=== PATIENT | male | born 1975 | race Caucasian/White ===

== ENCOUNTER 2018-03-17 01:11 | Emergency (ER) | payer BC, OTHER ==
[~2018-03-17] VITALS: Ht 172.7 cm; Wt 128.9 kg
[2018-03-17 01:27] VITALS: BP 132/87
--- NOTE | 2018-03-17 01:38 | ER.PDOC ---
General Chief Complaint: Cough/Congestion Stated Complaint: CONGESTION Time seen by MD: 01:20 Source: patient Exam Limitations: no limitations History of Present Illness Initial Comments Pt with cold like symptoms for 1 week, yesterday started with fever, cough, body aches, headaches. Timing/Duration: gradual Severity: moderate Associated Symptoms: fever/chills, cough, headache Allergies: Coded Allergies: No Known Allergies (Unverified , 09/22/16) Constitutional: fever EENTM: no symptoms reported Respiratory: see HPI Cardiovascular: no symptoms reported Gastrointestinal: no symptoms reported Genitourinary: no symptoms reported Musculoskeletal: no symptoms reported Skin: no symptoms reported Psychiatric/Neurological: headache Endocrine: no symptoms reported Hematologic/Lymphatic: no symptoms reported Past Medical History Medical History: no pertinent history Surgical History: tonsillectomy Social History Smoking: chew Alcohol Use: rarely Drug Use: none Physical Exam General Appearance: alert, no distress Eye: eyes nml inspection, lids & conjunct. nml, PERRL, no nystagmus Ear: ear nml Nose: nose nml Throat: pharynx nml, airway nml Neck: nml inspection, supple Respiratory: no resp.distress, rhonchi (bilaterally) Abdomen: non-tender, no organomegaly CVS: reg rate & rhythm, heart sounds nml Skin: color nml, no rash, warm/dry Extremities: non-tender, nml ROM, no pedal edema NEURO/PSYCH: oriented x 3, CN's nml as tested, motor nml, sensation nml, mood/ affect nml Results/Orders Results/Orders Laboratory Tests Test 03/17/18 01:46 03/17/18 01:50 White Blood Count 11.6 10^3/uL (4.5-11.0) Red Blood Count 4.86 10^6/uL (4.50-5.90) Hemoglobin 14.1 g/dL (13.9-16.3) Hematocrit 39.3 % (37.0-53.0) Mean Corpuscular Volume 80.9 fL (78-100) Mean Corpuscular Hemoglobin 29.0 pg (26-34) Mean Corpuscular Hemoglobin Concent 35.9 g/dL (33-37) Red Cell Distribution Width 13.6 % (11.5-14.5) Platelet Count 222 10^3/uL (150-400) Mean Platelet Volume 10.0 fL (7.8-11.0) Neutrophils (%) (Auto) 84.9 % (41.0-85.0) Lymphocytes (%) (Auto) 5.4 % (24.0-44.0) Monocytes (%) (Auto) 8.7 % (5.0-12.0) Neutrophils # (Auto) 9.8 10^3/uL (1.8-7.7) Lymphocytes # (Auto) 0.6 10^3/uL (1.0-4.8) Monocytes # (Auto) 1.0 10^3/uL (0.3-0.8) Absolute Immature Granulocyte (auto 0.05 10^3 u/L (0-2) Eosinophils % 0.3 % (0.0-5.0) Basophils % 0.3 % (0.0-0.2) Basophils # 0.0 10^3/uL (0.0-0.1) Eosinophil Count 0.0 10^3/uL (0.0-0.2) Sodium Level 138 mmol/L (132-145) Potassium Level 2.6 mmol/L (3.6-5.2) Chloride Level 101.0 mmol/L (96-109) Carbon Dioxide Level 26.1 mmol/L (20.0-32) Anion Gap 13.5 Blood Urea Nitrogen 9 mg/dL (7-18) Creatinine 1.22 mg/dL (0.59-1.40) Estimated GFR () 78.1 (>/=60) BUN/Creatinine Ratio 7.0 Glucose Level 156 mg/dL (70-110) Calcium Level 8.6 mg/dL (8.4-10.5) Total Bilirubin 0.7 mg/dL (0.2-1.0) Aspartate Amino Transf (AST/SGOT) 20 U/L (0-35) Alanine Aminotransferase (ALT/SGPT) 33 U/L (12-78) Alkaline Phosphatase 45 U/L (50-136) Total Protein 7.4 g/dL (6.4-8.2) Albumin 3.3 g/dL (3.4-5.0) Globulin 4.1 Percent Immature Gran (Cell Imm) 0.40 % (0.00-0.50) Influenza Type A Antigen NEGATIVE (NEG) Influenza B Immunofluorescence NEGATIVE (NEG) Departure Time of Disposition: 02:18 Disposition: 01 HOME, SELF-CARE Impression: Primary Impression: Acute bronchitis Additional Impression: Migraine Condition: Stable Patient Instructions: Bronchitis, Nyef-ja-Fyvl, Migraine Headache Referrals: [facility]AN[facility] (PCP) PRIMARY CARE PROVIDER Duration or Time Spent with Pa: 15 Problem Qualifiers SANDI VIGIL MD Mar 17, 2018 01:38
[2018-03-17 01:51] LABS: BASOPHIL % 0.3 % (0.0-0.2); EOSINOPHIL % 0.3 % (0.0-5.0); HEMOGLOBIN 14.1 g/dL (13.9-16.3); LYMPHOCYTES # 0.6 10^3/uL (1.0-4.8); LYMPHOCYTES % 5.4 % (24.0-44.0); MEAN CELL HGB CONCENTRATION 35.9 g/dL (33-37); MEAN CORP VOLUME 80.9 fL (78-100); MONOCYTES % 8.7 % (5.0-12.0); NEUTROPHIL # 9.8 10^3/uL (1.8-7.7); NEUTROPHILS % 84.9 % (41.0-85.0); RED CELL DISTRIBUTION WIDTH 13.6 % (11.5-14.5); WHITE BLOOD CELL 11.6 10^3/uL (4.5-11.0)
--- NOTE | 2018-03-17 01:54 | DIREP ---
PROCEDURE:CHEST 1 VIEW COMPARISON:[facility], CR, CHEST 2 VIEW, 01/08/2014, 05:[address] [facility], CR, XRAY CHEST SINGLE VW, 09/22/2016, 09:57 PM. INDICATIONS:Fever, cough FINDINGS: LUNGS/PLEURA:No significant pulmonary parenchymal abnormalities. No effusions. VASCULATURE:Normal. Unremarkable pulmonary vasculature. CARDIAC:Normal. No cardiac silhouette abnormality or cardiomegaly. MEDIASTINUM:Normal. No visible mass or adenopathy. BONES:Normal. No fracture or visible bony lesion. OTHER:Negative. CONCLUSION:Normal examination. There is no significant change as compared with the previous examination. Dictated by: Diogo Valdivia MD on 03/17/2018 at 01:51 AM
[2018-03-17 02:07] LABS: CALCIUM 8.6 mg/dL (8.4-10.5); CARBON DIOXIDE 26.1 mmol/L (20.0-32)
[2018-03-17] MEDS ORDERED: ROCEPHIN IM IM STA (02:21)
[2018-03-17] MEDS ORDERED: TORADOL ONE (02:22)
[2018-03-17] MEDS ORDERED: ROCEPHIN ONE (02:22)
[2018-03-17] MEDS ORDERED: LIDOCAINE 1% VIAL ONE (02:22)
[2018-03-17 02:24] LABS: BAND NEUTROPHILS 17 % (2-6); BASOPHIL 1 % (0-2); EOSINOPHIL 1 % (1-4); LYMPHOCYTE 4 % (25-36); MONOCYTE 7 % (3-9); SEGMENTED NEUTROPHILS 70 % (31-76)
[2018-03-17 02:30] VITALS: BP 160/76
[2018-03-17] MEDS ORDERED: TORADOL IM ONE (02:30)
[2018-03-17 03:18] VITALS: BP 132/87
== END 2018-03-17 03:20 | disposition home or self-care (01) ==
LOC: ER 01:11
DX: J20.9 Acute bronchitis, unspecified (principal); G43.909 Migraine, unspecified, not intractable, without status migrainosus; F17.220 Nicotine dependence, chewing tobacco, uncomplicated; Z90.89 Acquired absence of other organs
CPT/HCPCS: 36415; 71045; 80053; 85025; 86710 ×2; 96372 ×2; 99285; J0696; J1885; J2001

== ENCOUNTER → 2018-05-29 | Outpatient (CLI) | payer BC ==
--- NOTE | 2018-05-29 20:39 | DIREP ---
PROCEDURE:XRAY SPINE THORACIC 3 VWS COMPARISON:None. INDICATIONS:Thoracic PAIN TECHNIQUE:AP & lateral views of the thoracic spine and a swimmer's view of the cervicothoracic junction are provided. FINDINGS: ALIGNMENT:Normal. VERTEBRAE:No visible fracture. DISK SPACES:Normal. OTHER:Normal. CONCLUSION:No visible fracture. Dictated by: Nando Felder M.D. on 05/29/2018 at 08:37 PM
--- NOTE | 2018-05-29 20:40 | DIREP ---
PROCEDURE:XR SPINE CERVICAL 2 OR 3 VIEWS COMPARISON:None. INDICATIONS:CERVICAL PIAN TECHNIQUE:AP, lateral, and dens views of the cervical spine are provided. FINDINGS: ALIGNMENT:Straightening of the spine, may be positional or secondary to muscle spasm. VERTEBRAE:No visible fracture. Bones appear intact however T1 is not visible on the lateral and cannot be cleared. DISK SPACES:Within normal limits. However, C7-T1 not seen on the lateral and cannot be cleared. CERVICAL RIBS:None. OTHER:Normal. CONCLUSION:Straightening of the spine without acute findings. However C7-T1 not well seen on the lateral and cannot be cleared. Dictated by: Nando Felder M.D. on 05/29/2018 at 08:38 PM
== END | disposition home or self-care (01) ==
LOC: RAD 17:21
PROVIDERS: ATTEND Nurse Practitioner Family
DX: M54.6 Pain in thoracic spine (principal); M54.2 Cervicalgia; M54.10 Radiculopathy, site unspecified; G62.89 Other specified polyneuropathies
CPT/HCPCS: 72040; 72072

== ENCOUNTER → 2018-07-26 | Outpatient (CLI) | payer BC ==
--- NOTE | 2018-07-26 11:29 | DIREP ---
PROCEDURE:CT CHEST W&W/O COMPARISON:None. INDICATIONS:LUNG OPACITY, ABNORMAL MRI OF T-SPINE TECHNIQUE:Helical sections through the chest were performed from the lung apices through the diaphragms with and without IV contrast. Sagittal and coronal reconstructions are obtained from source images. FINDINGS: LUNGS:Linear densities in the right lung base in keeping with subsegmental atelectasis or scarring. PLEURA:Normal. No mass or effusion. CARDIAC:Normal. No enlargement, pericardial thickening, or significant calcification. MEDIASTINUM:Normal. No mass or adenopathy. SOM:Normal. No mass or adenopathy. AORTA:Normal. No aneurysm. CHEST WALL:Normal. No mass or axillary adenopathy. LIMITED ABDOMEN: Low-density liver indicates fatty infiltration. Simple appearing left renal cyst(s). BONES:Normal. No bony lesion or fracture. OTHER:Negative. CONCLUSION: 1. Subsegmental atelectasis or scarring at the right lung base 2. Low-density liver indicates fatty infiltration. Dictated by: Diogo Bishop Jr. on 07/26/2018 at 11:25 AM
== END | disposition home or self-care (01) ==
LOC: RAD 10:34
PROVIDERS: ATTEND Pediatrics
DX: N28.1 Cyst of kidney, acquired (principal); K76.0 Fatty (change of) liver, not elsewhere classified; R06.02 Shortness of breath
CPT/HCPCS: 71270; Q9965

== ENCOUNTER → 2018-09-06 | Outpatient (CLI) | payer BC ==
--- NOTE | 2018-09-06 19:25 | DIREP ---
PROCEDURE:CT CERVICAL SPINE WITHOUT CONTRAST TECHNIQUE:Axial cuts were obtained through the cervical spine. The images were viewed at bone and soft tissue settings. Sagittal and coronal reconstructions are provided. COMPARISON:None. INDICATIONS:M54.12 CERVICAL RADICULOPATHY FINDINGS: ALIGNMENT:There is reversal the cervical lordosis that may be positional or related to spasm. VERTEBRAE:Normal. PARASPINAL AREA:Normal. OTHER:No additional findings. CERVICAL DISC LEVELS Mild C5-6 and pxju-yt-atbhcurs C6-7 disc space narrowing. Dorsal disc and osteophyte bulges are present at C4-5, C5-6, and C6-7 resulting in gnfn-xk-drnabyal spinal canal stenosis at these levels. CONCLUSION: 1. Dorsal disc and osteophyte bulges from C4-5 through C6-7 resulting in eieh-tm-lihjkhzh spinal canal stenosis. 2. No fractures or subluxations. 3. Mild C5-6 and uqas-jl-eohwfxjd C6-7 degenerative disc disease. Dictated by: Reinaldo Tapia MD on 09/06/2018 at 07:20 PM
== END | disposition home or self-care (01) ==
LOC: RAD 15:30
PROVIDERS: ATTEND Neurological Surgery
DX: M50.323 Other cervical disc degeneration at C6-C7 level (principal); M25.78 Osteophyte, vertebrae; M48.02 Spinal stenosis, cervical region
CPT/HCPCS: 72125

== ENCOUNTER → 2020-01-10 | Outpatient (CLI) | payer BC ==
--- NOTE | 2020-01-10 16:13 | DIREP ---
PROCEDURE:US SOFT TISSUE ABDOMINAL WALL COMPARISON:CT, CT CHEST W&W/O, 07/26/2018, 10:56 AM. INDICATIONS:HERNIA TECHNIQUE:Sonography of the soft tissues of the supraumbilical region was performed using grayscale and color Doppler imaging. Detail somewhat limited by large body habitus. FINDINGS: MASSES:None. FLUID COLLECTIONS:None. OTHER:Negative. CONCLUSION:No sonographic evidence of hernia, limited detail secondary to body habitus. Concern for hernia persists consider CT the abdomen and pelvis. Dictated by: GENA Physician on 01/10/2020 at 03:21 PM ac
== END | disposition home or self-care (01) ==
LOC: RAD 14:25
PROVIDERS: ATTEND Nurse Practitioner Family
DX: K46.9 Unspecified abdominal hernia without obstruction or gangrene (principal)
CPT/HCPCS: 76705

== ENCOUNTER → 2020-04-03 | Outpatient (CLI) | payer BC | END | disposition home or self-care (01) | LOC: LAB 11:35 | PROVIDERS: ATTEND Nurse Practitioner Family | DX: E03.9 Hypothyroidism, unspecified (principal) | CPT/HCPCS: 36415; 84443 ==

== ENCOUNTER → 2020-06-18 | Outpatient (CLI) | payer BC ==
[2020-06-18 10:36] LABS: MEAN CORP HGB 28.8 pg (26-34); RED CELL DISTRIBUTION WIDTH 12.8 % (11.5-14.5)
[2020-06-18 11:22] LABS: CALCIUM 8.8 mg/dL (8.4-10.5)
== END | disposition home or self-care (01) ==
LOC: LAB 10:14
PROVIDERS: ATTEND Nurse Practitioner Family
DX: I10 Essential (primary) hypertension (principal); R53.83 Other fatigue; E78.5 Hyperlipidemia, unspecified; E03.9 Hypothyroidism, unspecified; R53.81 Other malaise; R73.9 Hyperglycemia, unspecified
CPT/HCPCS: 36415; 80053; 80061; 83036; 84402; 84403; 84439; 84443; 84480; 85027

== ENCOUNTER → 2020-10-26 | Outpatient (CLI) | payer BC ==
--- NOTE | 2020-10-26 18:13 | DIREP ---
PROCEDURE:US SOFT TISSUE ABDOMINAL WALL COMPARISON:None. INDICATIONS:VENTRAL HERNIA, PAIN TECHNIQUE:Sonography of the ventral abdominal wall was performed using grayscale and color Doppler imaging. FINDINGS: Visualized abdominal wall defect measuring 6.6 x 8.4 x 0.3 cm. Evidence of bowel herniation increase with Valsalva maneuver CONCLUSION:Abdominal wall defect containing loop of bowel, increased with Valsalva maneuver. Dictated by: Beka Ennis DO on 10/26/2020 at 06:10 PM
== END | disposition home or self-care (01) ==
LOC: RAD 14:59
PROVIDERS: ATTEND Nurse Practitioner Family
DX: K43.9 Ventral hernia without obstruction or gangrene (principal)
CPT/HCPCS: 76705

== ENCOUNTER 2020-11-25 07:45 | Day surgery (SDC) | payer BC ==
[2020-11-17 10:08] LABS: BASOPHIL % 0.4 % (0.0-0.2); EOSINOPHIL # 0.1 10^3/uL (0.0-0.2); EOSINOPHIL % 1.7 % (0.0-5.0); LYMPHOCYTES # 1.72 10^3/uL1 (1.0-4.8); LYMPHOCYTES % 22.6 % (24.0-44.0); MONOCYTES # 0.6 10^3/uL (0.3-0.8); MONOCYTES % 7.6 % (5.0-12.0); NEUTROPHIL # 5.1 10^3/uL (1.8-7.7); NEUTROPHILS % 67.6 % (41.0-85.0); PLATELET COUNT 237 10^3/uL (150-400); RED CELL DISTRIBUTION WIDTH 12.6 % (11.5-14.5)
[2020-11-17 10:25] LABS: CALCIUM 8.5 mg/dL (8.4-10.5); CARBON DIOXIDE 33.3 mmol/L (20.0-32)
[2020-11-17 10:31] VITALS: BP 131/82
--- NOTE | 2020-11-17 10:57 | PCM.EKG ---
[facility] Test Date: 2020-11-17 Test Time: 10:53:19 Pat Name: KIN ZAMORANO Department: Room: Gender: M [employer] Curator: EFRAIN JAMIL : 1975 Requested By: KENNETH ZAVALA Order Number: [id number] Reading MD: Measurements Intervals [place] Rate: 60 P: 30 FL: 176 QRS: 47 QRSD: 96 T: 36 QT: 460 QTc: 460 Interpretive Statements Normal sinus rhythm No previous ECG available for comparison Please click the below link to view image of tracing.
[2020-11-25] VITALS (14 sets, daily range): BP systolic 110–144; BP diastolic 63–97
[~2020-11-25] VITALS: Ht 175.3 cm; Wt 127.0 kg
[~2020-11-25 07:45] MED LIST: AMLO5TAB4 PO; LACTATED RINGERS 1,000 ML ONE; LEVO75TA6 PO; LISI1TAB20 PO; ROSU20TA2 PO; TEST1PAT3 TD
[2020-11-25] MEDS ORDERED: SODIUM CHLORIDE IRR BOTTLE IR ONE (07:47)
[2020-11-25] MEDS ORDERED: NS 100ML 100 ML IV ONE (08:18)
[2020-11-25] MEDS ORDERED: ANCEF ONE (08:19)
[2020-11-25] MEDS ORDERED: LACTATED RINGERS 1,000 ML IV SCH (10:00)
[2020-11-25] MEDS ORDERED: SUBLIMAZE ONE (11:30)
[2020-11-25] MEDS ORDERED: ZEMURON IV ONE (11:31)
[2020-11-25] MEDS ORDERED: EXPAREL 266 MG/20 ML VIAL IJ ONE (11:56)
[2020-11-25] MEDS ORDERED: ACET1TAB38 PO (14:23)
[2020-11-25] MEDS ORDERED: TYLENOL #4 PO PRN (14:30)
--- NOTE | 2020-11-25 15:02 | PRM.OPH ---
Immediate Post Op Report Immediate Post Op Report Imediate Post Op Report Preop diagnosis Incarcerated umbilical hernia containing fat Postoperative diagnosis Same Procedure Laparoscopic incarcerated umbilical hernia repair with mesh Surgeon Dr. Torres Anesthesia General EBL 20 mL Specimen None Complications None Mesh Ventral light ST 4-1/2 inch round mesh with echo placement system CARMELLA TORRES MD Nov 25, 2020 15:02
--- NOTE | 2020-11-25 15:11 | PRM.OPH ---
OPERATIVE REPORT OPERATIVE REPORT Procedure Patient was initially seen and identified in the preoperative area. After confirming their identity, H&P, consents, and making sure that all her questions were answered, patient was transferred from the preop area to the operating theater. Patient was transferred from [facility] to the operating room table and placed in supine position. Patient was given general anesthesia. Canseco catheter was placed. A bump was placed under the left side. His abdomen was prepped with ChloraPrep and a sterile field created in the standard fashion. Incision 2 fingers breath below the costal margin on the left side was then made appropriate for a 12 mm trocar. The Veress needle was inserted in the abdominal cavity and the abdomen was insufflated to 15 mmHg. Using the VisualCV system a 12 mm trocar was inserted into the abdominal cavity and confirmed there was no signs of any intra-abdominal injury. Then 3 additional 5 mm trochars were placed 1 in the left lower quadrant 1 in the right lower quadrant and one in the right upper quadrant. All 3 of these were placed under direct visualization and basically formed a large square around the umbilical hernia. With these [address] LigaSure was used to take down a small amount of the falciform ligament which would prevent the mesh from laying flat. Then using th e LigaSure we were able to pull the fat out from the incarcerated hernia and then amputated. Once this was completed the hernia was easily seen a small stab incision just above the umbilicus was then made and using the Yosvany Morin device a 0 Vicryl suture was passed across the defect and then tied closing the defect. Then using the same opening going slightly above where the suture was the Yosvany Morin was then placed back into the abdominal cavity after the mesh had been placed through the 12 mm trocar into the abdominal cavity and grasped the stitch portion of the echo placement device and pulled it up into the approximate position making sure there was a good 2 cm coverage over the and around the area of the close defect. The pressure was then brought down to 10 mmHg. The mesh was pulled tight against the abdominal wall. Then using a laparoscopic tacker tacks were placed first around the right side of the mesh and then completing the cervical the left side was done. 4 additional tacks were placed and sort of a ring in more of the center of the mesh. At that point the stitch was cut the echo placement system was grabbed with laparoscopic grasper and pulled out of the body. Mesh appeared to have good fixation and had nice tightness. There was no signs of any active or ongoing bleeding. Pressure was brought back up to 15 mmHg. We then remove the 12 mm trocar using the Yosvany Morin device to pass a 0 Vicryl suture across the defect. Tying it to close the defect. After which time the abdomen was deinsufflated the remaining trochars were removed. All 5 incisions were closed with 4-0 Monocryl suture. Abdomen was washed and dried and Dermabond placed over the incision. The patient was handed back to anesthesia to be awoken from general anesthesia transferred back to his stretcher and escorted to the PACU for further recovery. Patient tolerated the procedure well. CARMELLA TAMAYO MD Nov 25, 2020 15:11
== END 2020-11-25 16:11 | disposition home or self-care (01) ==
LOC: SDC 07:45
PROVIDERS: ATTEND Surgery
DX: K42.0 Umbilical hernia with obstruction, without gangrene (principal); I10 Essential (primary) hypertension; E03.9 Hypothyroidism, unspecified; Z98.890 Other specified postprocedural states; Z79.899 Other long term (current) drug therapy; Z98.1 Arthrodesis status; Z79.01 Long term (current) use of anticoagulants
CPT/HCPCS: 36415; 49653; 80053; 85025; 85610; 85730; 93005; A4217; C1781; J0690; J3010; J3490; J7120; C9290